=== PATIENT | male | born 1990 | race Caucasian/White ===

== ENCOUNTER 2017-10-27 04:58 | Emergency (ER) | payer SELFPAY ==
[~2017-10-27] VITALS: Ht 190.5 cm; Wt 69.9 kg
--- NOTE | 2017-10-27 05:10 | NUR ---
[facility] BEDSIDE WITH PT TAKING REPORT
[2017-10-27] MEDS ORDERED: HYDROCODONE/APAP 10/325MG 1 EA TABLET ONE (05:26)
[2017-10-27] MEDS ORDERED: HYDROCODONE/APAP 10/325MG 1 EA TABLET PO ONE (05:30)
--- NOTE | 2017-10-27 07:15 | NUR ---
RECIEVED REPORT AT THIS TIME. PT SLEEPING IN THE BED W/ HIS GIRLFRIEND. NAD. VSS WILL CONT TO MONITOR
--- NOTE | 2017-10-27 07:45 | NUR ---
Patient discharged to home in stable condition. Written and verbal after care instructions given. Patient verbalizes understanding of instruction.
[2017-10-27 07:46] VITALS: BP 118/69
== END 2017-10-27 07:47 | disposition home or self-care (01) ==
LOC: ER 04:59
DX: S06.9X9A Unspecified intracranial injury with loss of consciousness of unspecified duration, initial encounter (principal); S42.031A Displaced fracture of lateral end of right clavicle, initial encounter for closed fracture; S70.01XA Contusion of right hip, initial encounter; S20.212A Contusion of left front wall of thorax, initial encounter; S00.33XA Contusion of nose, initial encounter; Y04.2XXA Assault by strike against or bumped into by another person, initial encounter; Y93.89 Activity, other specified; Y92.89 Other specified places as the place of occurrence of the external cause; Y99.8 Other external cause status
CPT/HCPCS: 70450; 70486; 71045; 73030; 73130; 73502; 99284; A4606; Z7610

== ENCOUNTER 2021-11-10 03:21 | Emergency (ER) | payer MEDICAID ==
[~2021-11-10] VITALS: Ht 175.3 cm; Wt 68.0 kg
[2021-11-10] MEDS ORDERED: ONDANSETRON 4 MG TAB.RAPDIS ONE (03:46)
--- NOTE | 2021-11-10 03:46 | NUR ---
PATIENT [address] C/O Fentanyl WITHDRAWL, LAST USED 3 DAYS AGO. PATIENT IS A/O X 3, RR EVEN AND UNLABORED, NO SOB NOTED. PATIENT IS AFEBRILE. PATIENT TAKEN TO ER BED 15. PATIENT CONNECTED TO MONITORS.
--- NOTE | 2021-11-10 03:50 | NUR ---
LAB AT BEDSIDE
[2021-11-10] MEDS ORDERED: ONDANSETRON 4 MG TAB.RAPDIS SL ONE (04:00)
[2021-11-10 04:03] LABS: BASOPHILS % (AUTO) 0.6 % (0.0-2.0); EOSINOPHILS % (AUTO) 3.1 % (0.0-6.0); HEMATOCRIT 45 % (39-51); HEMOGLOBIN 15.2 g/dL (13.5-17.5); LYMPHOCYTES # (AUTO) 1.3 K/uL (0.8-4.8); MEAN CORPUSCULAR HGB CONC 34 g/dl (31.0-36.0); MEAN CORPUSCULAR VOLUME 87 fL (80-96); MONOCYTES # (AUTO) 0.3 K/uL (0.1-1.30); NEUTROPHILS % (AUTO) 72.3 % (43.0-81.0); PLATELET COUNT (AUTO) 258 K/uL (150-450); WHITE BLOOD COUNT (AUTO) 6.9 K/uL (4.3-11.0)
[2021-11-10 04:21] LABS: CALCIUM, SERUM 8.7 mg/dL (8.5-10.1); CARBON DIOXIDE 31 mmol/L (21-32); CHLORIDE 107 mmol/L (98-107); GLUCOSE 119 mg/dL (74-106); POTASSIUM 4.4 mmol/L (3.5-5.1); SODIUM SERUM 142 mmol/L (136-145); UREA NITROGEN, BLOOD 12 mg/dL (7-18)
[2021-11-10 04:26] LABS: ALANINE AMINOTRANSFERASE 38 U/L (12-78); ALBUMIN 3.8 g/dL (3.4-5.0); ALCOHOL, BLOOD < 3 mg/dL (0-0); ALKALINE PHOSPHATASE 78 U/L (46-116); ASPARTATE AMINOTRANSFERASE 19 U/L (15-37); BILIRUBIN,DIRECT 0.1 mg/dL (0.0-0.2); BILIRUBIN,TOTAL 0.3 mg/dL (0.2-1.0); TOTAL PROTEIN, SERUM 7.5 g/dL (6.4-8.2)
[2021-11-10 04:32] LABS: ACETAMINOPHEN 0 ug/ml (10-30)
--- NOTE | 2021-11-10 08:50 | NUR ---
Patient discharged to home in stable condition. Written and verbal after care instructions given. Patient verbalizes understanding of instruction.
[2021-11-10 09:10] VITALS: BP 114/63
== END 2021-11-10 09:10 | disposition home or self-care (01) ==
LOC: ER 03:25
DX: R41.82 Altered mental status, unspecified (principal); F11.23 Opioid dependence with withdrawal; Z59.00 Homelessness unspecified
CPT/HCPCS: 99283; 85025; 80048; 80076; 36415; 80143; 80320; Q0162; G0480